=== PATIENT | male | born 1990 | race Caucasian/White ===

== ENCOUNTER 2023-06-28 09:57 | Emergency (ER) | payer OTHER, SELFPAY ==
[2023-06-28 10:11] VITALS: BP 141/96; PULSE 97; RESP 18; TEMP 37.6; O2SAT 100
--- NOTE | 2023-06-28 10:32 | ED.URI ---
HPI - URI/Sore Throat General Chief Complaint: Upper Respiratory Infection Stated Complaint: Sore Throat Source: patient and RN notes reviewed History of Present Illness HPI Narrative: 33 yo M presents to urgent care with complaints of left sided throat pain and fevers, reaching 101 F. Pt states his symptoms started 2 days ago. Pt states both of his kids had a viral illness with fevers this week and last but never complained of a sore throat. Denies any chest pain, SOB, N/V/D, or ear pain. Pt denies any trouble swallowing or breathing. Pt has been taking OTC antipyretic with good relief of fevers. Related Data Home Medications Medication Instructions Recorded Confirmed No Home Medications 06/28/23 06/28/23 Allergies Allergy/AdvReac Type Severity Reaction Status Date / Time No Known Allergies Allergy Verified 06/28/23 10:22 Review of Systems Review of Systems: Pertinent positives and pertinent negatives per HPI. PMFSH Comments At the time of my signature, I reviewed and agree with the nursing past medical, surgical, social, and family history. There is no relevant family history pertinent to the patient complaint. Exam Narrative: GENERAL: This is a well-nourished, well-developed patient, in no apparent distress. HEAD: normocephalic, atraumatic. EYES: Sclera clear/white. Vision is grossly intact. EARS: External ears normal, auditory canals clear and without drainage, TMs normal without perforation. Hearing grossly intact. NOSE: External nose normal with no obvious nasal discharge, nares without redness, no rhinorrhea. THROAT: Mucous membranes moist, posterior pharynx clear. left-sided erythemic. No abscess or swelling is seen. NECK: Neck supple, non-tender without lymphadenopathy, masses or thyromegaly. CARDIOVASCULAR: Regular rate RESPIRATORY: No respiratory distress SKIN: warm, intact with no suspicious lesions or rash, good texture and turgor. NEURO: awake, alert, and oriented to person, place and time. There were no obvious focal neurologic abnormalities. Course Course Level of Care: Express Care Visit Vital Signs Vital signs: Vital Signs Temperature 99.7 F H 06/28/23 10:11 Pulse Rate 97 06/28/23 10:11 Respiratory Rate 18 06/28/23 10:11 Blood Pressure 141/96 H 06/28/23 10:11 Pulse Oximetry 100 06/28/23 10:11 Oxygen Delivery Room Air 06/28/23 10:11 Temperature 99.7 F H 06/28/23 10:11 Pulse Rate 97 06/28/23 10:11 Respiratory Rate 18 06/28/23 10:11 Blood Pressure 141/96 H 06/28/23 10:11 Pulse Oximetry 100 06/28/23 10:11 Oxygen Delivery Room Air 06/28/23 10:11 reviewed MDM - URI/Sore Throat MDM Narrative Medical decision making narrative: Rapid strep is negative in the office; however we will send to the lab for confirmation; there is a small percentage chance that it can come back positive; if it is, we will call you in 2-3days; and your prescription will be call in to your pharmacy. However, there is NO indication for antibiotic at this time. -Increase your fluids and Vitamin C. -Oral rinses such as: Salt water gargles and/or may use topical anesthetic (eg. Chloraseptic spray) or lozenges to relieve dryness or throat pain. -Take tylenol and ibuprofen as needed for pain and fever as directed. -Frequent hand washing or hand laundry assistant is one of the best ways to prevent spread of infection. -Follow up with primary care provider in 2-3 days if condition is not improving or seek ER visit if your child starts breathing fast/has trouble breathing, is not drinking enough fluids, muffle voice, difficulty opening the mouth or will not wake up or will not interact with you. Differential Diagnosis Differential diagnosis: Likely upper respiratory infection, otitis media, sinusitis, viral infection and pharyngitis Lab Data Attestation: I reviewed the patient's lab results. Critical Care Time Critical Care Time Critical Care Time: No Discharge Plan D
== END 2023-06-28 10:42 | disposition home or self-care (01) ==
PROVIDERS: Emergency Provider Nurse Practitioner Family
DX: J02.9 Acute pharyngitis, unspecified (principal)
CPT/HCPCS: 87081; 87880; 99203; G0463

== ENCOUNTER 2023-06-30 10:08 | Emergency (ER) | payer OTHER, SELFPAY ==
[2023-06-30 10:09] VITALS: BP 167/89; PULSE 85; RESP 16; TEMP 36.9; O2SAT 99
[2023-06-30 11:02] VITALS: O2SAT 100
--- NOTE | 2023-06-30 13:15 | ED.GENADULT ---
HPI - General Adult General Chief complaint: Unspecified Stated complaint: sore throat with swollen lymph nodes Time Seen by Provider: 06/30/23 11:41 Source: patient Mode of arrival: ambulatory Limitations: no limitations History of Present Illness HPI narrative: This is a 33-year-old male who presents to the ED with chief complaint of sore throat x5 days. Reports swollen lymph nodes on the left side and that his visualized a part of exudate in the back of his throat. Reports that he was seen at urgent care earlier and they did negative strep swab with negative strep culture. He feels that they may have missed the area exudate when drawing the swab that he was seeing in the mirror. He reports he is continuing to have fevers as well. States he is able to control fevers with ibuprofen. Denies cough, congestion, shortness of breath, neck pain, ear pain. Related Data Allergies Allergy/AdvReac Type Severity Reaction Status Date / Time No Known Allergies Allergy Verified 06/30/23 10:08 Exam Narrative: GENERAL: Well-appearing, well-nourished, and in no acute distress. HEAD: Normocephalic, atraumatic. EYES: PERRLA and EOMI. ENT: Posterior oropharynx erythema noted. Left tonsillar exudate noted. Minimal tonsillar swelling bilaterally. Uvula midline. No trismus or drooling. Floor of the mouth intact. Nares clear, no rhinorrhea or epistaxis. Mucous membranes moist. NECK: Supple. No adenopathy or masses. CHEST: No respiratory distress. Clear to auscultation. No wheezes rales or rhonchi HEART: Regular rate and rhythm. No murmur heard. Normal peripheral pulses. ABDOMEN: Soft, nontender, nondistended, normal active bowel sounds. MSK: Normal range of motion. No edema. SKIN: Warm, dry, no rash. NEURO: Alert and oriented x3. No focal deficits. PSYCH: Normal mood and affect. Course Vital Signs Vital signs: Vital Signs Temperature 98.4 F 06/30/23 10:09 Pulse Rate 85 06/30/23 10:09 Respiratory Rate 16 06/30/23 10:09 Blood Pressure 167/89 H 06/30/23 10:09 Pulse Oximetry 99 06/30/23 10:09 Temperature 98.4 F 06/30/23 10:09 Pulse Rate 71 06/30/23 13:23 Respiratory Rate 17 06/30/23 13:23 Blood Pressure 167/89 H 06/30/23 10:09 Pulse Oximetry 100 06/30/23 13:23 Oxygen Delivery Room Air 06/30/23 11:02 Medical Decision Making MDM Narrative Medical decision making narrative: This is a 33-year-old male presents to the chief complaint of sore throat for the past 5 days. Previously seen at urgent care. Vitals are normal. Afebrile. No trismus, drooling or indications for imaging. He had a negative strep swab previously but he still is exudates to tonsillar area. He is still having fevers. Symptoms consistent with pharyngitis. Will cover with antibiotics despite the negative recent strep swab, Augmentin prescribed. Pt will be discharged in stable condition. Return precautions given and supportive measures discussed. Pt is understanding and agreeable with plan for discharge and follow-up with PCP. Vital Signs Vital Signs: Vital Signs Temperature 98.4 F 06/30/23 10:09 Pulse Rate 85 06/30/23 10:09 Respiratory Rate 16 06/30/23 10:09 Blood Pressure 167/89 H 06/30/23 10:09 Pulse Oximetry 99 06/30/23 10:09 Temperature 98.4 F 06/30/23 10:09 Pulse Rate 71 06/30/23 13:23 Respiratory Rate 17 06/30/23 13:23 Blood Pressure 167/89 H 06/30/23 10:09 Pulse Oximetry 100 06/30/23 13:23 Oxygen Delivery Room Air 06/30/23 11:02 Discharge Plan Discharge Clinical Impression: Pharyngitis Patient Disposition: Home, Self-Care Condition: Stable Instructions: Antibiotic Form Additional Instructions: Your exam today shows evidence of pharyngitis. Please take short course of antibiotics in case this is bacterial. It may still be viral and if so, it will self resolve over the next few days. Return to the ER if you feel you cannot swallow, have unc
[2023-06-30 13:23] VITALS: PULSE 71; RESP 17; O2SAT 100
== END 2023-06-30 13:24 | disposition home or self-care (01) ==
PROVIDERS: Emergency Provider Physician Assistant
DX: J02.9 Acute pharyngitis, unspecified (principal)
CPT/HCPCS: 99283